=== PATIENT | female | born 1985 | race Caucasian/White ===

== ENCOUNTER 2017-04-09 07:09 | Emergency (ER) | payer SELFPAY ==
[~2017-04-09] VITALS: Ht 165.1 cm; Wt 68.2 kg
[2017-04-09 07:36] VITALS: BP 115/74
[2017-04-09 08:28] LABS: URINE APPEARANCE CLOUDY; URINE BILIRUBIN NEGATIVE (NEGATIVE); URINE BLOOD NEGATIVE (NEGATIVE); URINE COLOR YELLOW; URINE GLUCOSE NEGATIVE (NEGATIVE); URINE KETONE NEGATIVE (NEGATIVE); URINE LEUKOCYTE ESTERASE NEGATIVE (NEGATIVE); URINE MUCUS PRESENT (NOT PRESENT); URINE NITRATE NEGATIVE (NEGATIVE); URINE PROTEIN(semi-quant) 1+ mg/dL (NEGATIVE); URINE UROBILINOGEN NORMAL (NORMAL)
== END 2017-04-09 08:22 | disposition left against medical advice (07) ==
LOC: ED 07:09 → EDBD 07:28 → ED 07:28
PROVIDERS: Nurse Practitioner
DX: Z53.21 Procedure and treatment not carried out due to patient leaving prior to being seen by health care provider (principal); Z32.02 Encounter for pregnancy test, result negative; F32.9 Major depressive disorder, single episode, unspecified; F43.10 Post-traumatic stress disorder, unspecified; Z91.14 Patient's other noncompliance with medication regimen; F41.9 Anxiety disorder, unspecified

== ENCOUNTER 2017-04-10 05:25 | Emergency (ER) | payer SELFPAY ==
[~2017-04-10] VITALS: Ht 152.4 cm; Wt 56.8 kg
[2017-04-10 05:34] VITALS: BP 110/65
[2017-04-10 06:39] LABS: BASO # 0.1 (0.02-0.10); EOS # 0.3 (0.04-0.40); EOS % 3.3 % (1.0-5.0); HEMATOCRIT 42.4 % (37.0-47.0); HEMOGLOBIN 13.8 g/dL (12.5-16.0); LYMPH# 2.5 (1.50-4.00); MEAN CELL VOLUME 88 fl (78-100); MEAN CORPUSCULAR HEMOGLOBIN 29 pg (27-31); MEAN CORPUSCULAR HGB CONC 33 g/dL (33-37); MEAN PLATELET VOLUME 8.9 fl (7.4-10.4); NEU # 6.2 (1.40-6.50); PLATELET COUNT 355 K/mm3 (130-400); RED BLOOD COUNT 4.81 M/mm3 (4.10-5.30); RED CELL DISTRIBUTION WIDTH 14.5 % (11.5-14.5); WHITE BLOOD COUNT 10.1 K/mm3 (4.8-10.8)
[2017-04-10 06:51] LABS: ALBUMIN 3.8 g/dL (3.5-5.0); BUN/CREATININE RATIO 8.9 (6.0-26.0); CALCIUM 9.2 mg/dL (8.4-10.2); POTASSIUM 3.7 mmol/L (3.6-5.0); TOTAL BILIRUBIN 0.4 mg/dL (0.2-1.3); TOTAL PROTEIN 7.7 g/dL (6.3-8.2)
[2017-04-10 06:56] LABS: URINE APPEARANCE CLOUDY; URINE BILIRUBIN NEGATIVE (NEGATIVE); URINE BLOOD NEGATIVE (NEGATIVE); URINE COLOR YELLOW; URINE GLUCOSE NEGATIVE (NEGATIVE); URINE KETONE NEGATIVE (NEGATIVE); URINE LEUKOCYTE ESTERASE NEGATIVE (NEGATIVE); URINE NITRATE NEGATIVE (NEGATIVE); URINE PROTEIN(semi-quant) NEGATIVE (NEGATIVE); URINE UROBILINOGEN NORMAL (NORMAL)
[2017-04-10 06:57] LABS: URINE MUCUS PRESENT (NOT PRESENT)
== END 2017-04-10 08:15 | disposition left against medical advice (07) ==
LOC: ED 05:25
PROVIDERS: Nurse Practitioner Family
DX: F15.10 Other stimulant abuse, uncomplicated (principal); R00.2 Palpitations; F41.9 Anxiety disorder, unspecified; R45.851 Suicidal ideations; F31.9 Bipolar disorder, unspecified